=== PATIENT | female | born 1975 | race American Indian/Alaskan Native ===

== ENCOUNTER 2016-09-25 18:13 | Emergency (ER) | payer OTHER ==
[2016-09-25] MEDS ORDERED: TYLENOL PO ONE (19:50)
[2016-09-25] MEDS ORDERED: NORCO 5/325 PO ONE (21:02)
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
[2016-09-25] MEDS ORDERED: THERMAZENE 50 GRAM TP ONE (21:31)
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
[2016-09-25] MEDS ORDERED: BOOSTRIX IM ONE (22:12)
[2016-09-25 23:42] VITALS: BP 148/102
== END 2016-09-25 23:59 | disposition home or self-care (01) ==
LOC: ED 18:13
DX: T23.202A Burn of second degree of left hand, unspecified site, initial encounter (principal); S00.81XA Abrasion of other part of head, initial encounter; Z79.899 Other long term (current) drug therapy; X08.8XXA Exposure to other specified smoke, fire and flames, initial encounter; W01.0XXA Fall on same level from slipping, tripping and stumbling without subsequent striking against object, initial encounter; Y93.89 Activity, other specified; Y99.8 Other external cause status; Y92.89 Other specified places as the place of occurrence of the external cause
CPT/HCPCS: 90471; 90715